=== PATIENT | male | born 1985 | race African-American/Black ===

== ENCOUNTER 2018-10-04 21:18 | Emergency (ER) | payer OTHER ==
--- NOTE | 2018-10-04 21:30 | PDOC ---
Rapid Medical Evaluation Time Seen by Provider: 10/04/18 21:29 Medical Evaluation: Allergies Allergy/AdvReac Type Severity Reaction Status Date / Time No Known Allergies Allergy Verified 01/26/13 13:15 10/04/18 21:29 I have performed a brief in-person evaluation of this patient. The patient presents with a chief complaint of:LBP x 2 days hx of prior injury Pertinent physical exam findings:no gross deficits I have ordered the following:nothing The patient will proceed to the ED for further evaluation. Discharge Disposition - Diagnosis Low back pain - Referrals - Patient Instructions - Post Discharge Activity
[2018-10-04 21:33] VITALS: BP 120/88; PULSE 81; TEMP 98.4; BMI 24.4
[2018-10-04] MEDS ORDERED: CYCLOBENZAPRINE HCL 10 MG TABLET (FP) PO ONE (23:29)
[2018-10-04] MEDS ORDERED: KETOROLAC TROMETHAMINE 60 MG/2 ML VIAL IM ONE (23:29)
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
[2018-10-04] MEDS ORDERED: KETOROLAC TROMETHAMINE 60 MG/2 ML VIAL ONE (23:32)
[2018-10-04] MEDS ORDERED: CYCLOBENZAPRINE HCL 10 MG TABLET (FP) ONE (23:32)
== END 2018-10-04 23:53 | disposition home or self-care (01) ==
LOC: JER 21:18
PROC: 3E0233Z Introduction of Anti-inflammatory into Muscle, Percutaneous Approach (ICD-10-PCS; principal; 2018-10-04)
DX: M54.5 Low back pain (principal)
CPT/HCPCS: 96372; 99282-25

== ENCOUNTER 2019-04-22 10:10 | Emergency (ER) | payer OTHER ==
[2019-04-22 10:18] VITALS: BP 123/74; PULSE 71; TEMP 97.5; BMI 23.7
[2019-04-22] MEDS ORDERED: KETOROLAC TROMETHAMINE 60 MG/2 ML VIAL IM ONE (10:37)
[2019-04-22] MEDS ORDERED: METHOCARBAMOL 500 MG TABLET PO ONE (10:37)
[2019-04-22] MEDS ORDERED: LIDOCAINE 5% TOPICAL PATCH TP ONE (10:37)
[2019-04-22] MEDS ORDERED: KETOROLAC TROMETHAMINE 60 MG/2 ML VIAL ONE (10:39)
[2019-04-22] MEDS ORDERED: METHOCARBAMOL 500 MG TABLET ONE (10:40)
[2019-04-22] MEDS ORDERED: LIDOCAINE 5% TOPICAL PATCH ONE (10:40)
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
[2019-04-22] MEDS ORDERED: LIDOCAINE PATCH REMOVAL MC SCH (22:00)
== END 2019-04-22 11:23 | disposition home or self-care (01) ==
LOC: JERFT 10:10
PROC: 3E0233Z Introduction of Anti-inflammatory into Muscle, Percutaneous Approach (ICD-10-PCS; principal; 2019-04-22)
DX: M54.42 Lumbago with sciatica, left side (principal)
CPT/HCPCS: 96372; 99282-25

== ENCOUNTER 2020-03-04 08:32 | Emergency (ER) | payer OTHER ==
[2020-03-04 08:44] VITALS: BP 125/78; PULSE 65; TEMP 98.5; BMI 22.3
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
[2020-03-04] MEDS ORDERED: KETOROLAC TROMETHAMINE 15 MG/ML VIAL IVPUSH ONE (09:13)
[2020-03-04] MEDS ORDERED: LIDOCAINE 5% TOPICAL PATCH TP ONE (09:13)
[2020-03-04] MEDS ORDERED: KETOROLAC TROMETHAMINE 60 MG/2 ML VIAL IM ONE (09:18)
[2020-03-04] MEDS ORDERED: KETOROLAC TROMETHAMINE 60 MG/2 ML VIAL ONE (09:21)
[2020-03-04] MEDS ORDERED: LIDOCAINE 5% TOPICAL PATCH ONE (09:21)
[2020-03-04] MEDS ORDERED: KETOROLAC TROMETHAMINE 30 MG/1 ML VIAL IM ONE (09:22)
== END 2020-03-04 10:22 | disposition home or self-care (01) ==
LOC: JER 08:32
PROC: 3E023GC Introduction of Other Therapeutic Substance into Muscle, Percutaneous Approach (ICD-10-PCS; principal; 2020-03-04)
DX: M54.2 Cervicalgia (principal); M54.6 Pain in thoracic spine
CPT/HCPCS: 99284-25